=== PATIENT | female | born 1970 | race Caucasian/White ===

== ENCOUNTER 2017-08-19 16:33 | Emergency (ER) | payer BC ==
[2017-08-19 17:09] VITALS: BP 147/84
--- NOTE | 2017-08-19 17:55 | UC ---
Throat Pain/Nasal George HPI - History of Current Complaint Chief Complaint: UCRespiratory Stated Complaint: COUGH,SOB Time Seen by Provider: 08/19/17 17:30 Hx Obtained From: Patient Hx Last Menstrual Period: n/a Onset/Duration: Gradual Onset, Lasting Weeks, Still Present Severity: Moderate Cough: Nonproductive Associated Signs & Symptoms: Positive: Hoarseness, Sinus Discomfort, Nasal Discharge - Epiglottits Risk Factors Epiglottis Risk Factors: Negative - Allergies/Home Medications Allergies/Adverse Reactions: Allergies Allergy/AdvReac Type Severity Reaction Status Date / Time Sulfamethoxazole Allergy Intermediate Rash Verified 08/19/17 17:03 w/Trimethoprim [From Bactrim] Home Medications: Home Medications Ascorbic Acid TAB* [Vitamin C TAB*] 500 mg PO DAILY 08/19/17 [History Confirmed 08/19/17] Ranitidine TAB (NF) [Zantac TAB (NF)] 150 mg PO BID PRN 08/19/17 [History Confirmed 08/19/17] Zinc Sulfate CAP* [Zinc-220 CAP*] 220 mg PO DAILY 08/19/17 [History Confirmed ] PMH/Surg Hx/FS Hx/Imm Hx Previously Healthy: Yes - Surgical History Surgical History: Yes Surgery Procedure, Year, and Place: gastric bypass, R knee arthroscopic , birthmark removal age 4 - Family History Known Family History: Positive: Respiratory Disease - Social History Occupation: Employed Full-time Lives: With Family Alcohol Use: None Substance Use Type: None Smoking Status (MU): Never Smoked Tobacco Household Exposure Type: Cigarettes - Immunization History Most Recent Influenza Vaccination: Not the Season Review of Systems Constitutional: Negative Skin: Negative Eyes: Negative ENT: Nasal Discharge, Sinus Congestion Respiratory: Negative Cardiovascular: Negative Gastrointestinal: Negative Genitourinary: Negative Motor: Negative Neurovascular: Negative Musculoskeletal: Negative Neurological: Negative Psychological: Negative Is Patient Immunocompromised?: No All Other Systems Reviewed And Are Negative: Yes Physical Exam Triage Information Reviewed: Yes Appearance: Well-Appearing, No Pain Distress, Well-Nourished Vital Signs: Initial Vital Signs Temp 97.7 F 08/19/17 16:59 Pulse 72 08/19/17 16:59 Resp 16 08/19/17 16:59 BP 147/84 08/19/17 16:59 Pulse Ox 100 08/19/17 16:59 Vital Signs Reviewed: Yes Eye Exam: Normal ENT: Positive: Hearing grossly normal, Nasal congestion, TM bulging, TM dull Dental Exam: Normal Neck exam: Normal Neck: Positive: Supple, Nontender, No Lymphadenopathy Respiratory Exam: Normal Respiratory: Positive: Chest non-tender, Lungs clear, Normal breath sounds, No respiratory distress, No accessory muscle use Cardiovascular Exam: Normal Cardiovascular: Positive: RRR, No Murmur, Pulses Normal Abdominal Exam: Normal Musculoskeletal Exam: Normal Musculoskeletal: Positive: Strength Intact, ROM Intact Neurological Exam: Normal Psychological Exam: Normal Skin Exam: Normal Throat Pain/Nasal Course/Dx - Differential Dx/Diagnosis Differential Diagnosis/HQI/PQRI: Sinusitis, URI Provider Diagnoses: RHINOSINUSITIS; BRONCHOSPASM Discharge - Discharge Plan Condition: Stable Disposition: HOME Prescriptions: Albuterol HFA INHALER* [Ventolin HFA Inhaler*] 1 puff INH Q6H PRN #1 mdi PRN Reason: Wheezing Benzonatate CAP* [Tessalon 100 MG CAP*] 100 mg PO TID PRN #15 cap PRN Reason: Cough Fluticasone NASAL SPRAY 50MCG* [Flonase NASAL SPRAY 50MCG*] 2 spray BOTH NARES DAILY #1 btl Patient Education Materials: Allergic Rhinitis (ED), Bronchospasm (ED) Referrals: [facility] [Outside] ALEJANDRO Hopkins [Primary Care Provider] -
== END 2017-08-19 18:01 | disposition home or self-care (01) ==
LOC: UCCORT 16:33
DX: J98.01 Acute bronchospasm (principal); Z88.2 Allergy status to sulfonamides; J32.9 Chronic sinusitis, unspecified
CPT/HCPCS: 99212; G0463

== ENCOUNTER 2018-11-28 09:16 | Emergency (ER) | payer BC ==
[2018-11-28 10:08] VITALS: BP 156/81
--- NOTE | 2018-11-28 10:18 | UC ---
Respiratory Complaint HPI - HPI Summary HPI Summary: The patient is a 48-year-old female with a two-week history of nasal congestion postnasal drip and facial pressure. Symptoms have markedly worsened the past 2 days. She now has bilateral ear pressure and pain as well as sensitivity to her upper teeth and gums. She has had fever as well as chills. She denies any chest pain or shortness of breath. - History of Current Complaint Chief Complaint: UCGeneralIllness Stated Complaint: CONGESTION,BI LAT EAR PAIN Time Seen by Provider: 11/28/18 10:09 Hx Obtained From: Patient Hx Last Menstrual Period: n/a Onset/Duration: Gradual Onset, Lasting Weeks Timing: Constant Severity Initially: Mild Severity Currently: Moderate Pain Intensity: 6 Pain Scale Used: 0-10 Numeric Character: Cough: Nonproductive Aggravating Factors: Nothing Associated Signs And Symptoms: Positive: Sinus Discomfort - Allergies/Home Medications Allergies/Adverse Reactions: Allergies Allergy/AdvReac Type Severity Reaction Status Date / Time sulfamethoxazole Allergy Rash Verified 11/28/18 10:05 [From Bactrim] trimethoprim [From Bactrim] Allergy Rash Verified 11/28/18 10:05 Home Medications: Home Medications Ibuprofen TAB* [Motrin TAB* 400 MG] 400 mg PO Q6H PRN 11/28/18 [History Confirmed 11/28/18] PMH/Surg Hx/FS Hx/Imm Hx Previously Healthy: Yes Respiratory History: Asthma, Bronchitis, Pneumonia - Surgical History Surgical History: Yes Surgery Procedure, Year, and Place: gastric bypass, R knee arthroscopic , birthmark removal age 4 - Family History Known Family History: Positive: Cardiac Disease, Hypertension, Diabetes, Respiratory Disease - Social History Alcohol Use: None Substance Use Type: None Smoking Status (MU): Never Smoked Tobacco Household Exposure Type: Cigarettes - Immunization History Most Recent Influenza Vaccination: Not the 2017/2017 Season Review of Systems All Other Systems Reviewed And Are Negative: Yes Constitutional: Positive: Fever, Chills Skin: Positive: Negative Eyes: Positive: Negative ENT: Positive: Ear Ache, Nasal Discharge, Sinus Congestion, Sinus Pain/ Tenderness Respiratory: Positive: Cough Cardiovascular: Positive: Negative Gastrointestinal: Positive: Negative Genitourinary: Positive: Negative Motor: Positive: Negative Neurovascular: Positive: Negative Musculoskeletal: Positive: Negative Neurological: Positive: Negative Psychological: Positive: Negative Physical Exam Triage Information Reviewed: Yes Appearance: Well-Appearing, No Pain Distress, Well-Nourished Vital Signs: Initial Vital Signs Temp 98.1 F 11/28/18 10:04 Pulse 76 11/28/18 10:04 Resp 17 11/28/18 10:04 BP 156/81 11/28/18 10:04 Pulse Ox 97 11/28/18 10:04 Vital Signs Reviewed: Yes Eyes: Positive: Conjunctiva Clear ENT: Positive: Hearing grossly normal, Nasal congestion, Nasal drainage, TM bulging, Sinus tenderness, Uvula midline. Negative: TM red, Tonsillar swelling , Tonsillar exudate, Trismus, Muffled voice, Hoarse voice Dental Exam: Normal Neck: Positive: Supple, Nontender, No Lymphadenopathy Respiratory: Positive: Lungs clear, Normal breath sounds, No respiratory distress, No accessory muscle use Cardiovascular: Positive: RRR, No Murmur Musculoskeletal: Positive: ROM Intact, No Edema Neurological: Positive: Alert Psychological Exam: Normal Skin Exam: Normal UC Diagnostic Evaluation - Laboratory O2 Sat by Pulse Oximetry: 97 - normal/not hypoxic Respiratory Course/Dx - Differential Dx/Diagnosis Provider Diagnosis: Sinusitis, Acute serous otitis media, bilateral, Elevated BP without diagnosis of hypertension Discharge - Sign-Out/Discharge Documenting (check all that apply): Patient Departure All imaging exams completed and their final reports reviewed: No Studies - Discharge Plan Condition: Stable Disposition: HOME Prescriptions: Amoxicillin PO (*) [Amoxicillin 875 MG (*)] 875 mg PO BID #20 tab Fluticasone NASAL SPRAY 50MCG* [Flonase NASAL SPRAY 50MCG*] 2 spray BOTH NARES BID #1 btl Patient Education Materials: Sinusitis (ED), Serous Otitis Media (ED) Forms: *Work Release Referrals: ALEJANDRO Hopkins [Primary Care Provider] - 1 Week (if not completely better) Additional Instructions: warm facial compresses SALINE NASAL SPRAY (OTC) 2 sprays each nostril 2x day use flonase about 5 minutes later - Billing Disposition and Condition Condition: STABLE Disposition: Home
== END 2018-11-28 10:30 | disposition home or self-care (01) ==
LOC: UCCORT 09:16
DX: J32.9 Chronic sinusitis, unspecified (principal); H65.03 Acute serous otitis media, bilateral; K08.89 Other specified disorders of teeth and supporting structures; J45.909 Unspecified asthma, uncomplicated; R03.0 Elevated blood-pressure reading, without diagnosis of hypertension; Z87.01 Personal history of pneumonia (recurrent); Z77.22 Contact with and (suspected) exposure to environmental tobacco smoke (acute) (chronic); Z88.2 Allergy status to sulfonamides
CPT/HCPCS: 99212; G0463

== ENCOUNTER 2019-04-25 10:07 | Emergency (ER) | payer BC ==
--- OUTSIDE RECORDS SUMMARY | 2019-04-25 11:03 | XMS REPORT | Continuity of Care Document ---
:1970 External Reference #:[id number] Author Name Lisy Vilchis Care Team Providers Name Role Phone HCP given Primary Care Physician Unavailable Payers Date Identification Numbers Payment Provider Subscriber Effective: Policy Number: [id number] Rafaelus July Suazo 2018 Ind/Ppo/Hmo/Pos PayID: [id number] [address] [place] [id number] Family History Date Family Member(s) Observation Comments General Cancer sister General Diabetes, Nos both grandmothers General Emotional Problems mother General Heart Disease grandparents, parents Siblings Several 1 brother, 2 sisters Social History Type Date Description Comments Sex Unknown Education High School Completed Diet Healthy, Well Balanced a little low on veggies Smoke-Free 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 Working Hand Dominance 02/14/2019 Right-handed Tobacco Use Start: Unknown Denies Cigarette Use Smoking Status Reviewed: 03/14/19 Denies Cigarette Use ETOH Use Rarely consumes alcohol Tobacco Use Start: Unknown Patient has never smoked Recreational Drug Use Denies Drug Use Enjoy Exercising Enjoys exercising Exercise Type/Frequency Exercises regularly Exercise Type/Frequency Walks daily Sun Exposure Does not use sunscreen Seat Belt/Car Seat always uses seat belt Smoke Alarms Yes smoke alarm Currently Active Patient is currently sexually active Contraceptive Methods None Age 1st [place] 17 Years Old # Partners in a Lifetime Partners 5-10 Allergies, Adverse Reactions, Alerts Active Allergies Reaction Severity Comments Date Bactrim Rash Moderate 02/14/2019 Medications Active Medications SIG Qnty Indications Ordering Date Provider Incentive Spirometer Use as directed 3 1units R06.02 Arnaud Frank, 09/2019 times in a row, 3 M.D. times a day Vitamin D3 Ultra 1 tab by mouth 1 4tabs Arnaud Frank, 03/02/2019 Potency time a week for M.D. [id number] vitamin d Tablets deficiency Plexus Slim 1 po daily Unknown 02/13/2019 Plexus Bioclense 2 times daily Unknown 02/13/2019 Plexus Probio 5 1 time daily Unknown 02/13/2019 Plexus Ease 2 times daily Unknown 02/13/2019 Vital Signs Date Vital Result Comment 04/18/2019 3:55pm BP Systolic 152 mmHg BP Diastolic 82 mmHg BP Systolic Recheck 154 mmHg BP Diastolic Recheck 88 mmHg Heart Rate 106 /min O2 % BldC Oximetry 9295 % Weight 208.50 lb 03/14/2019 3:24pm BP Systolic 136 mmHg BP Diastolic 72 mmHg Height 61 inches 5'1" per pt Weight 210.00 lb BMI (Body Mass Index) 39.7 kg/m2 02/14/2019 3:43pm BP Systolic 108 mmHg BP Diastolic 82 mmHg Height 60.75 inches 5'0.75" Weight 207.00 lb BMI (Body Mass Index) 39.4 kg/m2 Results Test Date Facility Test Result H/L Range Note Laboratory test 03/14/2019 [facility] SEE RESULT 1 finding [phone] BELOW Laboratory test 02/27/2019 [facility] Vitamin C 0.9 mg/dL 0.2-2.0 2, 3 finding LABORATORY [phone] CBC Auto Diff 02/23/2019 [facility] White Blood 5.7 K/uL N 3.1-10.7 4 LABORATORY Count [phone] Red Blood Count 5.16 M/uL N 3.90-5.40 Hemoglobin 15.2 gm/dL N 11.6-15.8 Hematocrit 44.9 % N 36.0-46.1 Mean Cell Volume 87.0 fl N 80.9-99.0 Mean Corpuscular HGB 29.5 pg N 25.9-32.7 Mean Corpuscular HGB Conc 33.9 g/dL N 30.8-34.3 Platelet Count 272 K/uL N 155-360 Red Cell Distri Width SD 43.7 fl N 36-47 Red Cell Distri Width %CV 13.8 % N 11.7-14.4 Mean Platelet Volume 9.3 fl N 8.9-12.4 Neut% 63.0 % N 40.4-72.8 Lymph % 26.0 % N 20.0-42.0 [place] % 8.2 % N 4.3-13.2 Eo% 2.3 % N 0.0-6.6 Bas% 0.3 % N 0.0-1.1 Immature Grans 0.2 % N 0.0-5.0 NRBC % 0.0 /100WBC < 10/ 100 WBC Neut# 3.60 K/uL N 1.8-7.0 Lymph # 1.49 K/uL N 1.0-4.0 [place] # 0.47 K/uL N 0.3-0.9 Eos # 0.13 K/uL N 0.0-0.5 Baso # 0.02 K/uL N 0.0-0.1 Immature Grans Absolute 0.01 K/uL NRBC # 0.00 K/uL Comp Metabolic Panel 02/23/2019 [facility] Glucose 91 mg/dL N 74-106 LABORATORY [phone] BUN 12 mg/dL N 7-18 Creatinine 0.7 mg/dL N 0.6-1.3 Glom Filtration Rate, Estimate >60 mL/min >60 If >60 mL/min >60 5 BUN/Creat 17.1 ratio Sodium 140 mmol/L N 136-145 Potassium 3.8 mmol/L N 3.5-5.1 Chloride 107 mmol/L N 98-107 Carbon Dioxide 29 mmol/L N 21-32 Anion Gap 4 mEq/L Low 8-16 Calcium 8.9 mg/dL N 8.5-10.1 Total Protein 8.3 g/dL High 6.4-8.2 Albumin 3.7 g/dL N 3.4-5.0 Globulin 4.6 g/dL High 1.9-4.3 Alb/Glob 0.8 ratio Bilirubin,Total 0.4 mg/dL N 0.2-1.0 Sgot/Ast 22 U/L N 15-37 SGPT/Alt 23 U/L N 12-78 Alkaline Phosphatase 82 U/L N 45-117 Laboratory 02/23/2019 [facility] Vitamin B1 106.1 66.5- 200.0 6 test finding LABORATORY (Thiamine),WB nmol/L [phone] Vitamin B12 975 pg/mL N 193-986 Vitamin B6 13.8 ug/L 2.0-32.8 7 Vitamin D,25-Hydroxy 14.8 ng/mL Low 30.0-100.0 8 Thyroid Stim Hormone 1.14 uIU/mL N 0.30-4.20 Magnesium 2.1 mg/dL N 1.8-2.4 Lipid Profile 02/23/2019 [facility]. Cholesterol 190 mg/dL < 200 9 (Trig/Chol/HDL) LABORATORY [phone] Triglycerides 129 mg/dL <150 10 HDL Cholesterol 62 mg/dL >40 11 LDL-Cholesterol 102 mg/dL < 100 12 1 SEE RESULT BELOW Name: CELSAJULY MARTINES : [address]: Floresita ALMANZAR Acct: [id number] Unit: [id number] AGE: 48 Location: [facility] Re03/14/19 SEX: F Status: REG REF SPEC: [id number] HELADIO: 03/14/19-[address]: Floresita ALMANZAR REQ: [id number] RECD: 03/15/19-141 STATUS: SOUT _ ORDERED: TP IMAGE ANALYS, HPV/Thin Prep COMMENTS: [id number] Negative for Intraepithelial lesion or Malignancy Date Time Test Result Flag (u) Normal Range 03/14/19 1642 HPV RNA Negative Negative The high-risk HPV types detected by the assay include: 16, 18, 31, 33, 35, 39, 45, 51, 52, 56, 58, 59, 66, and 68. A. Ectocervical/Endocervical Specimen Adequacy: Satisfactory of evaluation Transformation zone component identified Patient Information: HPV: High risk HPV RNA testing regardless of pap results. Actual Specimen Date: 03/14/19 ?: N Post Menopausal?: Y Hysterectomy?: N Signed by and Reported on: GLORIA Golden (ASCP) [id number] This Pap test was evaluated with the assistance of the [employer] Test Imaging System. Due to cytologic findings at the computer systems analyst microscope, comprehensive manual rescreening by a Security Agent may be required. The Pap Smear is a screening test designed to aid in the detection of premalignant and malignant conditions of the uterine cervix. It is not a diagnostic procedure and should not be used as the sole means of detecting cervical cancer. Both false- positive and false- negative reports do occur. Depending on your risk status, a Pap smear should be obtained and evaluated every 1-3 years. END OF REPORT DEPARTMENT OF PATHOLOGY, [address] [place] [address] Mikael Tipton M.D. Director [facility] # [id number] 2 E66.9 Z98.84 Z13.220 3 Performed at: [address] [id number] Hotel Custodian: Ofe Hyman MD, Phone: [phone] 4 Z98.84 E66.9 Z13.220 5 Note: Persistent reduction for 3 months or more in an eGFR <60 mL/min/1.73 m2 defines CKD. Patients with eGFR values >/=60 mL/min/1.73 m2 may also have CKD if evidence of persistent proteinuria is present. The original MDRD equation for estimated GFR is not valid for patients less than 18 years of age. Additional information may be found at www.kdoqi.org. 6 This test was developed and its performance characteristics determined by [employer]. It has not been cleared or approved by the Food and Drug Administration. Performed at: [address] [id number] Hotel Custodian: Ofe Hyman MD, Phone: [phone] This test was developed and its performance characteristics determined by [employer]. It has not been cleared or approved by the Food and Drug Administration. Performed at: [facility] [address] [id number] Hotel Custodian: Ofe Hyman MD, Phone: [phone] Vitamin D deficiency has been defined by the [place] of Medicine and an Endocrine Society practice guideline as a level of serum 25-OH vitamin D less than 20 ng/mL (1,2). The Endocrine Society went on to further define vitamin D insufficiency as a level between 21 and 29 ng/mL (2). 1. IOM ([place] of Medicine). 2010. Dietary reference intakes for calcium and D. [place]: The National Academies Press. 2. Lillian MF, Jenelle LICONA, Ganga GRANT, et al. Evaluation, treatment, and prevention of vitamin D deficiency: an Endocrine Society clinical practice guideline. JCEM. 2010; 96(7):1911-30. Performed at: RN - [facility] [address] [id number] Hotel Custodian: Vivian Vidal MD, Phone: [phone] Reference Guidelines*: Desirable: ........... < 200 mg/dL Borderline High: ..... 200-239 mg/dL High: ................ >=240 mg/dL * The National Cholesterol Education Program (NCEP) 10 Reference Guidelines*: Normal: ............. < 150 mg/dL Borderline High: .... 150-199 mg/dL High: ............... 200-499 mg/dL Very High: .......... > 500 mg/dL * Source: National Cholesterol Education Program (NCEP) 11 Reference Guidelines*: Low HDL: ..... < 40 mg/dL Normal: ..... 40-60 mg/dL Desirable: ... > 60 mg/dL *The National Cholesterol Education Program(NCEP) 12 Reference Guidelines*: Optimal:........... <100 mg/dL Near Optimal....... 100-129 mg/dL Borderline High.... 130-159 mg/dL High............... 160-189 mg/dL Very High.......... >=190 mg/dL * Source: National Cholesterol Education Program (NCEP) Procedures Date Code Description Status 04/18/2019 71743 Oximetry, Multiple Determinations (Eg, During Exercise) Completed 04/18/2019 44929 Bronchospasm Evaluation Pre & Post Completed 04/18/2019 20829 Electrocardiogram Complete Completed 04/18/2019 96750 X-Ray Chest 2 V Completed 03/14/2019 06536 X-Ray Foot Three Views Completed Encounters Type Date Location Provider Dx Diagnosis Office Visit 04/18/2019 Main Office Floresita Pearce, P.A. R06.02 Shortness of breath 3:40p R00.0 Tachycardia, unspecified R03.0 Elevated blood-pressure reading, w/o diagnosis of htn Office Visit 03/14/2019 3:00p Main Office Floresita Polo, Z00.01 Encounter for P.A. general adult medical exam w abnormal findings Z12.39 Encounter for oth screening for malignant neoplasm of breast Z12.4 Encounter for screening for malignant neoplasm of cervix M79.672 Pain in left foot M77.32 Calcaneal spur, left foot E66.9 Obesity, unspecified Z98.84 Bariatric surgery status D36.7 Benign neoplasm of other specified sites Office Visit 02/14/2019 3:00p Main Office Floresita Polo Z98.84 Bariatric surgery P.A. status E66.9 Obesity, unspecified Z13.220 Encounter for screening for lipoid disorders Z13.228 Encounter for screening for other metabolic disorders Z68.39 Body mass index (BMI) 39.0-39.9, adult Plan of Treatment Future Appointment(s):05/04/2019 10:00 am - Nurse's Schedule at Main [id number] 10:00 am - Nurse's Schedule at Main [id number]/18/2019 - Floresita Polo P.A.R06.02 Shortness of breathNew Medication:Incentive Spirometer - Use as directed 3 times in a row, 3 times a dayComments:EKG showed NSR, no concern CXR possible atelectasis, sending to [place] radiologist for review. spirometry showed moderate restriction with no response to albuterolNo labs ordered at this time as pt has recently had full panel which were mostly normal, with only slight deviations. (02/21/19--less than 2 months ago)Referral:[facility], Cardiology/Spec/TechR00.0 Tachycardia, unspecifiedComments:no tachy seen on EKG , was seen with minimal activity: walking around the office during multiple oximetry readings.ordering 24 hr holter for pt to wear, hopefully before she has referral appt w cardiologistpt requested this cardiologistReferral:[facility], Cardiology/Spec/TechR03.0 Elevated blood-pressure reading, without diagnosis of hypert
[2019-04-25 11:10] VITALS: BP 182/99
--- NOTE | 2019-04-25 11:31 | UC ---
Throat Pain/Nasal George HPI - HPI Summary HPI Summary: sinus pain and pressure x 10 days + post nasal drip, nasal congestion , cough bilateral ear pain and pressure low grade fever, chills not better with otc meds, - History of Current Complaint Chief Complaint: UCGeneralIllness Stated Complaint: SINUS/CHEST CONGESTION Time Seen by Provider: 04/25/19 11:22 Hx Obtained From: Patient Hx Last Menstrual Period: n/a Onset/Duration: Gradual Onset, Lasting Days - 10, Still Present Severity: Moderate Pain Intensity: 6 Cough: Nonproductive Associated Signs & Symptoms: Positive: Sinus Discomfort, Nasal Discharge, Fever. Negative: Dysphagia, FB Sensation, Drooling, Wheezing, Hoarseness, Vomiting, Rash - Allergies/Home Medications Allergies/Adverse Reactions: Allergies Allergy/AdvReac Type Severity Reaction Status Date / Time sulfamethoxazole Allergy Rash Verified 04/25/19 11:10 [From Bactrim] trimethoprim [From Bactrim] Allergy Rash Verified 04/25/19 11:10 Home Medications: Home Medications Fluticasone NASAL SPRAY 50MCG* [Flonase NASAL SPRAY 50MCG*] 2 spray BOTH NARES BID PRN 04/25/19 [History] PMH/Surg Hx/FS Hx/Imm Hx Previously Healthy: Yes - Surgical History Surgical History: Yes Surgery Procedure, Year, and Place: gastric bypass, R knee arthroscopic , birthmark removal age 4 - Family History Known Family History: Positive: Cardiac Disease, Hypertension, Diabetes, Respiratory Disease - Social History Alcohol Use: None Substance Use Type: None Smoking Status (MU): Never Smoked Tobacco Household Exposure Type: Cigarettes - Immunization History Most Recent Influenza Vaccination: Not the Season Review of Systems All Other Systems Reviewed And Are Negative: Yes Constitutional: Positive: Fever, Chills, Fatigue Skin: Positive: Negative Eyes: Positive: Negative ENT: Positive: Sore Throat, Ear Ache Respiratory: Positive: Cough Cardiovascular: Positive: Negative Gastrointestinal: Positive: Negative Is Patient Immunocompromised?: No Physical Exam Triage Information Reviewed: Yes Appearance: Well-Appearing, No Pain Distress, Well-Nourished Vital Signs: Initial Vital Signs Temp 99.8 F 04/25/19 11:02 Pulse 109 04/25/19 11:02 Resp 18 04/25/19 11:02 BP 182/99 04/25/19 11:02 Pulse Ox 93 04/25/19 11:02 Vital Signs Reviewed: Yes Eye Exam: Normal Eyes: Positive: Conjunctiva Clear ENT: Positive: Normal ENT inspection, Hearing grossly normal, Pharyngeal erythema, Nasal congestion, Nasal drainage, TMs normal. Negative: TM bulging, TM dull, TM red, Tonsillar swelling, Tonsillar exudate Neck: Positive: Supple, Nontender, No Lymphadenopathy Respiratory: Positive: Chest non-tender, Lungs clear, Normal breath sounds Cardiovascular: Positive: RRR, No Murmur, Pulses Normal Throat Pain/Nasal Course/Dx - Differential Dx/Diagnosis Provider Diagnosis: Sinusitis, Elevated blood pressure reading Discharge - Sign-Out/Discharge Documenting (check all that apply): Patient Departure All imaging exams completed and their final reports reviewed: No Studies - Discharge Plan Condition: Stable Disposition: HOME Prescriptions: Amoxicillin/Clavulanate TAB* [Augmentin TAB 875*] 875 mg PO BID #20 tab Patient Education Materials: Sinusitis (ED), Hypertension (ED) Referrals: Floresita Polo PA [Primary Care Provider] - 7 Days Additional Instructions: elevated bp , please monitor your bp daily at home, low salt diet, daily walk follow up with your pcp in one week - Billing Disposition and Condition Condition: STABLE Disposition: Home
== END 2019-04-25 11:35 | disposition home or self-care (01) ==
LOC: UCCORT 10:07
DX: J32.9 Chronic sinusitis, unspecified (principal); R03.0 Elevated blood-pressure reading, without diagnosis of hypertension; Z88.1 Allergy status to other antibiotic agents
CPT/HCPCS: 99212; G0463

== ENCOUNTER 2019-12-25 18:29 | Emergency (ER) | payer BC ==
[2019-12-25 19:41] VITALS: BP 159/97
[2019-12-25 20:09] LABS: Influenza A Molecular Negative (Negative); Influenza B Molecular Negative (Negative)
--- NOTE | 2019-12-25 20:29 | UC ---
Throat Pain/Nasal George HPI - HPI Summary HPI Summary: 49-year-old female comes in with 3 days of upper respiratory tract infection symptoms. She's had some runny nose mild sore throat. There has been exposure to somebody with influenza in the family. Has had bodyaches and headache. - History of Current Complaint Chief Complaint: UCGeneralIllness Stated Complaint: SORE THROAT, COUGH Time Seen by Provider: 12/25/19 19:46 Hx Last Menstrual Period: n/a Pain Intensity: 6 - Allergies/Home Medications Allergies/Adverse Reactions: Allergies Allergy/AdvReac Type Severity Reaction Status Date / Time sulfamethoxazole Allergy Rash Verified 12/25/19 19:41 [From Bactrim] trimethoprim [From Bactrim] Allergy Rash Verified 12/25/19 19:41 PMH/Surg Hx/FS Hx/Imm Hx Previously Healthy: Yes - Surgical History Surgical History: Yes Surgery Procedure, Year, and Place: gastric bypass, R knee arthroscopic , birthmark removal age 4 - Family History Known Family History: Positive: Cardiac Disease, Hypertension, Diabetes, Respiratory Disease - Social History Alcohol Use: None Substance Use Type: None Smoking Status (MU): Never Smoked Tobacco Household Exposure Type: Cigarettes - Immunization History Most Recent Influenza Vaccination: Not the 2016/2017 Season Review of Systems All Other Systems Reviewed And Are Negative: Yes Constitutional: Positive: Other - SEE HPI Skin: Positive: Negative Eyes: Positive: Negative ENT: Positive: Sore Throat, Nasal Discharge Respiratory: Positive: Negative Cardiovascular: Positive: Negative Gastrointestinal: Positive: Negative Motor: Positive: Negative Neurovascular: Positive: Negative Musculoskeletal: Positive: Myalgia Neurological/Mental Status: Positive: Headache Psychological: Positive: Negative Is Patient Immunocompromised?: No Physical Exam Triage Information Reviewed: Yes Appearance: No Pain Distress, Well-Nourished, Ill-Appearing - MILD Vital Signs: Initial Vital Signs Temp 99.1 F 12/25/19 19:38 Pulse 92 12/25/19 19:38 Resp 18 12/25/19 19:38 BP 159/97 12/25/19 19:38 Pulse Ox 98 12/25/19 19:38 Vital Signs Reviewed: Yes Eye Exam: Normal Eyes: Positive: Conjunctiva Clear ENT: Positive: Pharynx normal, Nasal congestion, TMs normal Neck: Positive: Supple Respiratory: Positive: Lungs clear, Normal breath sounds, No respiratory distress Cardiovascular: Positive: RRR Musculoskeletal: Positive: Strength Intact, ROM Intact Neurological: Positive: Alert, Muscle Tone Normal Psychological: Positive: Age Appropriate Behavior Skin Exam: Normal Throat Pain/Nasal Course/Dx - Course Course Of Treatment: Strep and flu negative. Will treat symptomatically with ibuprofen and acetaminophen. Follow-up with her primary care doctor if not completely improved. Get reevaluated sooner if worse or any questions or concerns. - Differential Dx/Diagnosis Provider Diagnosis: Upper respiratory infection Discharge ED - Sign-Out/Discharge Documenting (check all that apply): Patient Departure All imaging exams completed and their final reports reviewed: No Studies - Discharge Plan Condition: Stable Disposition: HOME Patient Education Materials: Upper Respiratory Infection (ED) Referrals: Floresita Polo PA [Primary Care Provider] - Additional Instructions: FOLLOW UP WITH YOUR DOCTOR IF NOT COMPLETELY IMPROVED. GET REEVALUATED SOONER IF NOT IMPROVED OR WORSE OR ANY QUESTIONS OR CONCERNS. - Billing Disposition and Condition Condition: STABLE Disposition: Home
== END 2019-12-25 20:45 | disposition home or self-care (01) ==
LOC: UCCORT 18:29
DX: J06.9 Acute upper respiratory infection, unspecified (principal); Z88.2 Allergy status to sulfonamides
CPT/HCPCS: 87651; 99211; G0463